=== PATIENT | female | born 1960 | race Caucasian/White ===

== ENCOUNTER 2019-12-06 17:33 | Emergency (ER) | payer BC ==
[~2019-12-06] VITALS: Ht 170.2 cm; Wt 77.1 kg
[2019-12-06 17:44] VITALS: BP_SYST 156
--- NOTE | 2019-12-06 17:44 | NUR ---
Patient to ER bed 03 to gown for evaluation. Side rails up.
--- NOTE | 2019-12-06 17:50 | NUR ---
Pt. presents to the ED ambulatory and A&Ox4 with c/o of left lateral foot pain. Pt. states that she fell off a stool while doing housework earlier today. Left lateral aspect of foot appears swollen with some mild bruising. Pt states that she is not in any pain while laying down and/or sitting, however as soon as she moves it, pt. states the pain is excrutiating and rises to 10/10. She is unable to bear any weight on it at this time. Skin is dry and intact. Cap refill <3 seconds. Pedal pulses intact.
--- NOTE | 2019-12-06 18:06 | NUR ---
Dr. Albarado at bedside examining pt.
--- NOTE | 2019-12-06 18:30 | NUR ---
Radiology at bedside with pt.
--- NOTE | 2019-12-06 19:07 | NUR ---
LEFT SHORT LEG splint applied to LEFT LEG NOTED. PEDAL pulse noted. Capillary refill <3 seconds. Patient has ability to move non-splinted digits. Has sensation present to affected site. Skin color within normal limits. Applied for pain management control.
[2019-12-06 19:11] VITALS: BP_SYST 153
--- NOTE | 2019-12-06 19:11 | NUR ---
Patient given written and verbal discharge instructions and verbalizes understanding. ER MD discussed with patient the results and treatment provided. Patient in stable condition. ID arm band removed. Rx of NORCO given. Patient educated on pain management and to follow up with PMD. Pain Scale 0/10 Opportunity for questions provided and answered. Medication side effect fact sheet provided.
== END 2019-12-06 19:11 | disposition home or self-care (01) ==
LOC: SED 17:33
DX: S92.352A Displaced fracture of fifth metatarsal bone, left foot, initial encounter for closed fracture (principal); W18.39XA Other fall on same level, initial encounter; Y93.89 Activity, other specified; Y92.89 Other specified places as the place of occurrence of the external cause; Y99.8 Other external cause status
CPT/HCPCS: 99283

== ENCOUNTER 2020-01-19 11:59 | Emergency (ER) | payer BC, SELFPAY ==
[~2020-01-19] VITALS: Ht 170.2 cm; Wt 81.6 kg
[2020-01-19 12:38] VITALS: BP_SYST 134
[2020-01-19 14:45] LABS: BASOPHILS % (AUTO) 0.6 % (0.0-2.0); EOSINOPHILS # (AUTO) 0.1 K/uL (0.0-0.4); EOSINOPHILS % (AUTO) 1.6 % (0.0-4.0); HEMATOCRIT 45.3 % (36-48); HEMOGLOBIN 14.8 g/dL (12.0-16.0); LYMPHOCYTES # (AUTO) 2.2 K/uL (1.0-5.5); LYMPHOCYTES % (AUTO) 43.9 % (20.5-51.5); MEAN CORPUSCULAR HEMOGLOBIN 30 pg (27-31); MEAN CORPUSCULAR HGB CONC 33 % (32-36); MEAN CORPUSCULAR VOLUME 91 fL (79.0-98.0); MONOCYTES # (AUTO) 0.7 K/uL (0.0-1.0); MONOCYTES % (AUTO) 14.1 % (1.7-9.3); NEUTROPHILS % (AUTO) 39.8 % (40.0-70.0); PLATELET COUNT (AUTO) 197 K/uL (130-430); RED BLOOD CELL COUNT(AUTO) 4.97 MIL/uL (4.2-6.2); RED CELL DISTRIBUTION WIDTH 13.1 % (9.0-15.0); WHITE BLOOD COUNT (AUTO) 5.1 K/uL (4.8-10.8)
[2020-01-19 15:04] LABS: CALCIUM 9.4 mg/dL (8.4-11.0); CREATININE 0.81 mg/dL (0.55-1.30); POTASSIUM 3.9 mmol/L (3.5-5.1)
[2020-01-19 15:09] LABS: ALBUMIN 3.7 g/dL (3.4-4.8); TOTAL BILIRUBIN 0.4 mg/dL (0.0-1.0)
[2020-01-19 15:12] VITALS: BP_SYST 134
== END 2020-01-19 15:12 | disposition home or self-care (01) ==
LOC: SED 11:59
DX: B34.9 Viral infection, unspecified (principal); R07.89 Other chest pain; Z20.828 Contact with and (suspected) exposure to other viral communicable diseases
CPT/HCPCS: 36415; 71045; 80053; 85025; 93005; 99285; U0003